=== PATIENT | male | born 2000 | race Caucasian/White ===

== ENCOUNTER 2020-09-25 10:15 | Emergency (ER) | payer SELFPAY ==
[2020-09-25 10:47] VITALS: BP 181/122; PULSE 78; RESP 16; TEMP 36.7; O2SAT 100; BMI 36.5
--- NOTE | 2020-09-25 10:57 | ED_ITS ---
HPI - Abdominal Pain General: Chief Complaint: Abdominal Pain Stated Complaint: chest pain,L arm and back numb. Time Seen by Provider: 09/25/20 10:27 History of Present Illness: HPI narrative: Complains having some abdominal discomfort left upper quadrant area was last night. Patient went to work and anything to eat and started having some discomfort again. Said he is anxious has a history of anxiety. Patient denies any chest pressure shortness of breath said his left arm felt funny earlier today. MD elicited complaint: abdominal pain Pertinent past history: other (Reflux and anxiety) Onset (ago): day(s) Pain Consistency: colicky Location: Epigastric Associated Symptoms: Denies chills, fever(s), nausea and vomiting Review of Systems Const: Denies: fever(s), chills or body aches Eyes: Denies: change in vision or blurry vision ENMT: Denies: throat pain or nasal congestion Card: Denies: chest pain or dyspnea on exertion Resp: Denies: dyspnea, productive cough or non-productive cough GI: Reports: abdominal pain; Denies: nausea or vomiting : Denies: difficulty urinating Musc: Denies: extremity pain Skin/Breast: Denies: rash Neuro: Denies: headache(s) Psych: Reports: anxiety; Denies: depression Micah/Lymph: Denies: easy bruising Physical Exam Const: COMMON NORMALS: no acute distress, average body habitus and patient oriented x3 HENMT: COMMON NORMALS: normocephalic HEAD & SCALP: normal to inspection and normocephalic FACE & SINUS: normal facial exam Eye: COMMON NORMALS: conjunctivae normal GENERAL EYE: appearance normal, both eyes and all related structures CONJUNCTIVA: Yes conjunctivae normal Neck/C-Spine: COMMON NORMALS: no JVD Chest: COMMONS NORMALS: normal inspection of the chest Resp: COMMON NORMALS: normal respiratory effort and clear to auscultation bilaterally AUSCULTATION: clear to auscultation bilaterally Cardio: COMMON NORMALS: no JVD, regular rate and regular rhythm RATE: regular rate RHYTHM: regular rhythm GI: COMMON NORMALS: Normal to inspection, nondistended, normoactive bowel sounds present PALPATION: Yes Tenderness to palpation present (GI) Details: LUQ and other (Epigastric) Extremity: COMMON NORMALS: normal to inspection and full ROM Neuro: COMMON NORMALS: patient oriented x3 Course Vital Signs: Vital signs: Vital Signs Temperature 98.1 F 09/25/20 10:47 Pulse Rate 78 09/25/20 10:47 Respiratory Rate 16 09/25/20 10:47 Blood Pressure 181/122 09/25/20 10:47 Pulse Oximetry 100 09/25/20 10:47 MDM - Abdominal Pain MDM Narrative: Medical decision making narrative: meds actually given at 1155 not 1130. Lab Data: Labs: Lab Results 09/25/20 09/25/20 Range/Units 11:19 11:19 WBC 9.2 (4.5-13.0) 10^3/ uL RBC 5.36 H (4.1-5.3) 10^6/u L Hgb 14.5 (11.7-16.6) g/dL Hct 44.7 (42.0-52.0) % MCV 83.4 (80-94) fL MCH 27.1 L (28.0-34.0) pg MCHC 32.4 (30.0-36.0) g/dL RDW 13.4 (12.1-15.1) % Plt Count 310 (130-400) 10^3/c mm MPV 9.9 (7.4-10.4) fL Neut % (Auto) 70.9 % Lymph % (Auto) 18.3 % Hampton % (Auto) 8.5 % Eos % (Auto) 1.8 % Baso % (Auto) 0.3 % Neut # (Auto) 6.54 (1.8-8.0) 10^3/u L Lymph # (Auto) 1.7 (1.5-6.5) 10^3/u L Hampton # (Auto) 0.8 (0.2-0.9) 10^3/u L Eos # (Auto) 0.2 (0.0-0.8) 10^3/u L Baso # (Auto) 0.0 (0.0-0.1) 10^3/u L Nucleated RBC % (a uto) 0 % Nucleated RBCs # 0.0 /100WBC Sodium 137 (136-145) mmol/L Potassium 4.1 (3.5-5.1) mmol/L Chloride 101 (98-107) mmol/L Carbon Dioxide 23 (22-29) mmol/L Anion Gap 17.1 (5-19) BUN 6 (6-20) mg/dL Creatinine 0.7 (0.7-1.2) mg/dL GFR Calculation 145.3 H (90-130) mL/min Glucose 111 (65-115) mg/dL Calculated Osmolal ity 282 L (285-295) mOsm/k g Calcium 9.5 (8.5-10.5) mg/dL Lipase 19 (13-60) U/L Coding Level of Care Code ED Child Welfare Specialist for Chg Fwd Exam Comprehensive
[2020-09-25] MEDS: lidocaine 2% viscous 15 ML, aluminum-mag hydrox-simethicon 30 ML, sucralfate oral liq 1 GM PO (11:30)
[2020-09-25] MEDS: LORazepam 1 mg Tablet PO (11:30)
[2020-09-25 11:32] LABS: Basophils % 0.3 %; Eosinophils # 0.2 10^3/uL (0.0-0.8); Eosinophils % 1.8 %; Hematocrit 44.7 % (42.0-52.0); Hemoglobin 14.5 g/dL (11.7-16.6); Lymphocytes # 1.7 10^3/uL (1.5-6.5); Lymphocytes % 18.3 %; Mean Corpuscular HGB Conc 32.4 g/dL (30.0-36.0); Mean Corpuscular Hemoglobin 27.1 pg (28.0-34.0); Mean Corpuscular Volume 83.4 fL (80-94); Mean Platelet Volume 9.9 fL (7.4-10.4); Monocytes # 0.8 10^3/uL (0.2-0.9); Monocytes % 8.5 %; Neutrophils # 6.54 10^3/uL (1.8-8.0); Neutrophils % 70.9 %; Nucleated Red Blood Cells % 0 %; Platelet Count 310 10^3/cmm (130-400); Red Blood Count 5.36 10^6/uL (4.1-5.3); Red Cell Distribution Width 13.4 % (12.1-15.1); White Blood Count 9.2 10^3/uL (4.5-13.0)
[2020-09-25 11:53] LABS: Anion Gap 17.1 (5-19); Blood Urea Nitrogen 6 mg/dL (6-20); Calcium 9.5 mg/dL (8.5-10.5); Carbon Dioxide 23 mmol/L (22-29); Chloride 101 mmol/L (98-107); Glomerular Filtration Rate 145.3 mL/min (90-130); Glucose 111 mg/dL (65-115); Lipase 19 U/L (13-60); Osmolality Calculated 282 mOsm/kg (285-295); Potassium 4.1 mmol/L (3.5-5.1); Sodium 137 mmol/L (136-145)
[2020-09-25 12:27] VITALS: BP 117/65; PULSE 74; RESP 18; O2SAT 99
== END 2020-09-25 12:29 | disposition home or self-care (01) ==
PROVIDERS: Emergency Provider Nurse Practitioner Family
DX: R10.12 Left upper quadrant pain (principal)
CPT/HCPCS: 80048; 83690; 85025; 99283

== ENCOUNTER 2024-05-13 12:16 | Emergency (ER) | payer SELFPAY ==
[2024-05-13 12:37] VITALS: BP 133/83; PULSE 84; TEMP 36.8; O2SAT 99; BMI 38.4
--- NOTE | 2024-05-13 14:20 | ED_ITS ---
HPI - Back Pain/Injury General: Chief Complaint: Back Pain/Injury Stated Complaint: back pain Time Seen by Provider: 05/13/24 13:39 Source: patient Mode of arrival: ambulatory Limitations: no limitations History of Present Illness: Patient is a 23-year-old obese male here for complaints of lower back pain. Patient states approximately 4 days ago he bent over slightly to put a plate on the table and felt something pull in his back. He states a few days later he repositioned himself in a chair and feels like he restrained his back. Has been taking ibuprofen without much relief. He is not having any radicular discomfort. He is not experiencing any urinary or bowel incontinence/retention. MD elicited complaint: back pain Onset (ago): day(s) Timing: constant Severity: mild Similar Symptoms Previously: No Location: lumbar spine Radiation: none Exacerbating factors: movement Relieving factors: none Context: bending Associated symptoms: Reports no associated symptoms; Deny abdominal pain, chills, difficulty walking, dysuria, fatigue, fever(s) or hematuria Work related injury: No Related Data Previous Rx's ?Medication ?Instructions ?Recorded methocarbamol 500 mg tablet 1,000 mg (2 x 500 mg) PO Q 8H #30 05/13/24 tabs methylprednisolone 4 mg tablets in See Rx Instructions PO .COMPLEX 05/13/24 a dose pack (Medrol (Juan)) #21 ea Allergies Allergy/AdvReac Type Severity Reaction Status Date / Time diphenhydramine (From Allergy ALGY-Rash Verified 05/13/24 12:40 Benadryl) Review of Systems Const: Denies: fever(s), chills, body aches, fatigue or malaise Card: Denies: chest pain Resp: Denies: dyspnea GI: Denies: abdominal pain : Denies: flank pain, dysuria or hematuria Musc: Reports: back pain; Denies: neck pain, extremity pain, extremity swelling, joint pain, joint swelling or joint redness Skin/Breast: Denies: rash Neuro: Denies: numbness in extremities, weakness in extremities, sensory changes or difficulty walking Physical Exam Const: COMMON NORMALS: no acute distress, patient oriented x3, no limitations and alert GENERAL APPEARANCE: cooperative NUTRITIONAL APPEARANCE: obese Chest: COMMONS NORMALS: normal inspection of the chest and normal palpation of entire chest wall Resp: COMMON NORMALS: normal respiratory effort and clear to auscultation bilaterally AUSCULTATION: clear to auscultation bilaterally Cardio: COMMON NORMALS: regular rate and regular rhythm RATE: regular rate RHYTHM: regular rhythm GI: COMMON NORMALS: Normal to inspection, nondistended, normoactive bowel sounds present, Soft to palpation, non-tender and no masses PALPATION: Yes Soft to palpation : COMMON NORMALS: Yes no CVA tenderness BLADDER/KIDNEY EXAM: Yes no CVA tenderness Back/Pelvis: COMMON NORMALS: no CVA tenderness, thoracic and lumbar spine normal to inspection, thoraco-lumbar ROM normal and straight leg raise negative bilaterally THORACIC SPINE/UPPER BACK: No thoracic spinal tenderness and No paraspinal muscle tenderness LUMBAR SPINE/LOWER BACK: No lumbar spinal tenderness and Yes paraspinal muscle tenderness (across lower back) PELVIS: Yes buttocks normal and No sciatic notch tenderness SACROILIAC JOINTS: Yes SI joints normal SACRUM: no tenderness COCCYX: no tenderness Extremity: GENERAL: Yes normal exam except as noted Neuro: COMMON NORMALS: patient oriented x3, moves all extremities, no focal motor deficits, no sensory deficits noted and gait normal SENSORIUM/ORIENTATION: Yes alert Course Vital Signs: Vital signs: Vital Signs Temperature 98.2 F 05/13/24 12:37 Pulse Rate 84 05/13/24 12:37 Blood Pressure 133/83 05/13/24 12:37 Pulse Oximetry 99 05/13/24 12:37 Oxygen Delivery Me thod Room Air 05/13/24 12:37 MDM - Back Pain/Injury Medical Decision Making Patient has no red flags on history or physical examination. He will be encouraged to continue anti-inflammatories. Will add steroids and muscle relaxers. Will have case management set him up with primary care provider for further evaluation if symptoms do not improve. Return to ED precautions discussed. No radiology studies performed this visit Discharge Plan Discharge Patient Disposition: Home Clinical Impression: Strain of lumbar region Qualifiers: Encounter type: initial encounter Qualified Code(s): S39.012A - Strain of muscle, fascia and tendon of lower back, initial encounter Condition: Stable Prescriptions: New methocarbamol 500 mg tablet 1,000 mg PO Q8H Qty: 30 0RF methylprednisolone [Medrol (Juan)] 4 mg tablets,dose pack See Rx Instructions .ROUTE .COMPLEX Qty: 21 0RF Rx Instructions: orally per package directions Discharge Orders: Discharge ED (Routine); Ordered 05/13/24 Ordered By: Stephania Leal Patient Instructions: Low Back Strain (ED) Activity Restrictions/Additional Instructions: As we discussed, we have case management set you up with a primary care provider for further evaluation in case symptoms do not improve. You may try the prescription medications in addition to [id number] anti-inflammatories such as Motrin. Prescription medications have been sent to [facility] pharmacy. Print Language: Mongolian Coding Level of Care Code ED Financial Economist for Jacey Cochran
[2024-05-13 15:02] VITALS: BP 135/79; PULSE 88; O2SAT 98
--- NOTE | 2024-05-14 08:34 | DCPLANNER ---
Message sent to Clinics for PCP-
--- NOTE | 2024-05-16 09:47 | DCPLANNER ---
messaged [facility] for er f/u
== END 2024-05-13 15:04 | disposition home or self-care (01) ==
PROVIDERS: Emergency Provider Physician Assistant
DX: S39.012A Strain of muscle, fascia and tendon of lower back, initial encounter (principal); X58.XXXA Exposure to other specified factors, initial encounter
CPT/HCPCS: 99283